=== PATIENT | female | born 1975 | race Caucasian/White ===

== ENCOUNTER 2017-06-14 09:21 | Outpatient (CLI) | payer BC ==
--- NOTE | 2017-06-14 12:10 | Ultrasound Report ---
ULTRASOUND RIGHT UPPER QUADRANT: 06/14/2017 CLINICAL INDICATION: Pain. TECHNIQUE: Real-time scanning was performed with sales representative jewelry static images obtained. FINDINGS: The liver measures 14.8 cm. No intrahepatic biliary dilatation is seen. Hepatic echotext ure is normal. There is a 1.9 x 1.9 x 1.9 cm hypoechoic nodule in the dome of the right lobe, with a n echogenic rim. The appearance is suspicious. MRI of the liver with and without contrast is recomm ended for further evaluation. The common bile duct measures 3 mm. The gallbladder is normal. The r ight kidney measures 11.8 cm, and demonstrates no hydronephrosis. Trace right pleural fluid is incid entally noted. IMPRESSION: A 1.9 CM SUSPICIOUS NODULE IN THE RIGHT LOBE OF THE LIVER. MRI OF THE LIVER WITH AND WI THOUT CONTRAST IS RECOMMENDED FOR FURTHER EVALUATION. JOB #: [id number] EXT JOB #:[id number]
== END 2017-06-14 09:22 | disposition home or self-care (01) ==
LOC: DI 09:21
PROVIDERS: ATTEND Naturopath
DX: R16.0 Hepatomegaly, not elsewhere classified (principal)
CPT/HCPCS: 76705

== ENCOUNTER 2017-09-30 09:00 | Outpatient (CLI) | payer OTHER ==
--- NOTE | 2017-09-30 11:04 | Ultrasound Report ---
RIGHT UPPER QUADRANT ULTRASOUND: 09/30/2017 CLINICAL INDICATION: Followup liver lesion. COMPARISON: 06/14/2017. TECHNIQUE: Real-time scanning was performed with education courses sales representative static images obtained. FINDINGS: The liver measures 15.1 cm. Hepatic echogenicity is increased, compatible with fatty infiltration. The nodule in the right lobe measures 2.0 x 1.9 x 1.5 cm, stable. Again, further characterization with liver MRI would be helpful. The common bile duct is not dilated. The gallbladder is normal. The right kidney measures 11.9 cm, and demonstrates no hydronephrosis. No free fluid is present. IMPRESSION: STABLE NODULE IN THE RIGHT LOBE OF THE LIVER. TD: 09/30/2017 11:03
== END 2017-09-30 09:01 | disposition home or self-care (01) ==
LOC: DI 09:00
PROVIDERS: ATTEND Registered Nurse
DX: K76.9 Liver disease, unspecified (principal)
CPT/HCPCS: 76705

== ENCOUNTER 2018-05-21 08:18 | Outpatient (CLI) | payer OTHER ==
--- NOTE | 2018-05-21 12:25 | Ultrasound Report ---
Reason: F/U THYROID NODULES, F/U R LIVER NODULE Procedure Date: 05/21/2018 Accession Number: [id number] / [id number] Procedure: US - Abdomen Limited CPT Code: FULL RESULT: EXAM: ABDOMEN ULTRASOUND LIMITED, RUQ EXAM DATE: 05/21/2018 09:43 AM. CLINICAL HISTORY: F/U THYROID NODULES, F/U R LIVER NODULE. COMPARISON: Abdomen ultrasound 09/30/2017. TECHNIQUE: Real-time scanning was performed with static images obtained. FINDINGS: Liver: The liver is moderately and diffusely echogenic. 14.9 cm. Main portal vein flow: Hepatopetal. There is a hypoechoic lesion in the right lobe of the liver with an echogenic rind. Overall it measures up to 1.9 cm. No change. However, the hypoechoic area has increased from 1.0 cm to 1.3 cm. Gallbladder: No stones, wall thickening, or sonographic Talley's sign. Biliary System: CBD measures 5 mm. No intrahepatic or extrahepatic ductal dilatation. The right kidney is grossly remarkable. IMPRESSION: Right hepatic lesion has changed somewhat in character with the central echogenic area increased from 1.0 to 1.3 cm. This may be better evaluated with hepatic CT or MRI. [facility] ADDENDUM: 05/26/18 14:32 There was an administrative mistake in the impression. This does not change the management. However please change the impression to the following: IMPRESSION: Right hepatic lesion has changed somewhat in character with the central hypoechoic area increased from 1.0 to 1.3 cm. This may be better evaluated with hepatic CT or MRI.
--- NOTE | 2018-05-21 12:36 | Ultrasound Report ---
Reason: F/U THYROID NODULES, F/U R LIVER NODULE Procedure Date: 05/21/2018 Accession Number: [id number] / [id number] Procedure: US - Head or Neck Soft Tissue CPT Code: FULL RESULT: EXAM: THYROID ULTRASOUND EXAM DATE: 05/21/2018 09:42 AM. CLINICAL HISTORY: F/U THYROID NODULES, F/U R LIVER NODULE. COMPARISON: None. TECHNIQUE: Real time sonographic imaging of the thyroid was performed by the licensed therapist. Multiple access services representative static images were saved for review. FINDINGS: THYROID GLAND: Right Lobe: 5.4 x 2.5 x 2.3 cm, volume 16 cc. Normal background echotexture. Right Lobe Nodules: Middle lobe solid isoechoic. Smooth margins no calcifications. Internal color Doppler flow. 3.0 x 2.5 x 2.3 cm. Upper pole solid hypoechoic. Color than wide smooth margins no calcifications. 1.0 x 1.1 x 0.8 cm. Mid lobe at the junction of the isthmus solid isoechoic smooth margins wider than tall with no calcifications. 1.0 x 0.7 x 0.7 cm. Left Lobe: 4.9 x 1.7 x 1.6 cm, volume 7 cc. Normal background echotexture. Left Lobe Nodules: None. Isthmus: 0.4 cm AP. Isthmic Nodules: None. LYMPH NODES: No adenopathy demonstrated in the central or lateral compartment. IMPRESSION: 1. Nodule #1 3.0 cm TI-RADS 3 mildly suspicious. FNA of greater than or equal to 2.5 cm. 2. Nodule #2 1.1 cm. TI-RADS 5. Suspicious. FNA of greater than or equal to 1.0 cm. 3. Nodule #3 1.0 cm. TI-RADS 3. Mildly suspicious. FNA if greater than or equal to 2.5 cm. Follow if greater than 1.5 cm. Management recommendations are based on 2015 [place] [employer] Management Guidelines for Adult Patients with Thyroid Nodules and Differentiated Thyroid Cancer. RADIA
== END 2018-05-21 08:19 | disposition home or self-care (01) ==
LOC: DI 08:18
PROVIDERS: ATTEND Registered Nurse
DX: E04.1 Nontoxic single thyroid nodule (principal); K76.9 Liver disease, unspecified
CPT/HCPCS: 76536; 76705

== ENCOUNTER 2018-06-10 11:34 | Outpatient (CLI) | payer OTHER ==
[2018-06-10 13:38] LABS: FERRITIN 21.7 ng/mL (11.0-306.8); PROLACTIN 6.77 ng/mL
[2018-06-10 13:59] LABS: FOLLICLE STIMULATING HORMONE 16.18 mIU/mL
[2018-06-10 14:00] LABS: LUTEINIZING HORMONE 20.15 mIU/mL
[2018-06-10 15:48] LABS: CORTISOL 7.3 ug/dL
[2018-06-11 07:16] LABS: PROGESTERONE 1.2 ng/mL
== END 2018-06-10 11:35 | disposition home or self-care (01) ==
LOC: LAB 11:34
PROVIDERS: ATTEND Naturopath
DX: Z00.00 Encounter for general adult medical examination without abnormal findings (principal); Z13.29 Encounter for screening for other suspected endocrine disorder; E55.9 Vitamin D deficiency, unspecified
CPT/HCPCS: 36415; 81599; 82306; 82533; 82607; 82627; 82670; 82677; 82679; 82728; 83001; 83002; 84140; 84144; 84146; 84402; 84403

== ENCOUNTER 2019-08-06 11:11 | Outpatient (CLI) | payer BC ==
[2019-08-06 11:54] LABS: ALBUMIN 4.6 g/dL (3.2-5.5); ALBUMIN/GLOBULIN RATIO 1.5 (1.0-2.2); BILIRUBIN,TOTAL 1.1 mg/dL (0.2-1.0); CALCIUM 9.3 mg/dL (8.5-10.3); CREATININE 0.7 mg/dL (0.4-1.0); TOTAL PROTEIN 7.6 g/dL (6.7-8.2)
== END 2019-08-06 11:12 | disposition home or self-care (01) ==
LOC: LAB 11:11
PROVIDERS: ATTEND Internal Medicine Gastroenterology
DX: R10.13 Epigastric pain (principal); R93.89 Abnormal findings on diagnostic imaging of other specified body structures; R14.0 Abdominal distension (gaseous)
CPT/HCPCS: 36415; 80053

== ENCOUNTER 2019-08-27 10:03 | Outpatient (CLI) | payer BC ==
[2019-08-27] MEDS ORDERED: BARIUM SULFATE 148 GM POWDER PO ONE (14:16)
[2019-08-27] MEDS ORDERED: BARIUM SULFATE 700 MG TABLET PO ONE (14:16)
[2019-08-27] MEDS ORDERED: SIMETHICONE/SOD BICARB/CIT AC 1 EACH PACKET PO ONE (14:16)
[2019-08-27] MEDS ORDERED: BARIUM SULFATE 135 ML BOTTLE PO ONE (14:16)
--- NOTE | 2019-08-27 14:16 | XRAY Report ---
Reason: ABD PAIN, EPIGASTRIC, US SCAN ABN LIVER LESION Procedure Date: 08/27/2019 Accession Number: [id number] / [id number] Procedure: FL - UGI W/Air CPT Code: Final Report FULL RESULT: EXAM: UPPER GI SERIES EXAM DATE: 08/27/2019 10:36 AM. CLINICAL HISTORY: Abdominal pain, epigastric, ultrasound scan abnormal liver lesion. COMPARISONS: None. TECHNIQUE: Routine double contrast upper gastrointestinal technique. Fluoroscopy Time: 2 minutes 20 seconds. Number of fluoroscopy images: 37. FINDINGS: Swallowing Mechanism: Normal oral phase and swallowing reflex. No episodes of tracheal penetration or aspiration evident. Esophageal Motility: Normal peristaltic stripping wave. Esophageal Mucosa: Normal. No ulcerations or masses. Gastroesophageal Junction: There is no hernia. Spontaneous reflux is noted. Stomach: Normal gastric mucosal pattern. No ulcers identified. Duodenum: Normal duodenal mucosal pattern. No ulcers or diverticula identified. Other: None. IMPRESSION: Spontaneous reflux. RADIA
== END 2019-08-27 10:04 | disposition home or self-care (01) ==
LOC: DI 10:03
PROVIDERS: ATTEND Internal Medicine Gastroenterology
DX: K21.9 Gastro-esophageal reflux disease without esophagitis (principal)
CPT/HCPCS: 74246; A9270

== ENCOUNTER 2023-06-19 10:40 | Outpatient (CLI) | payer BC ==
--- NOTE | 2023-06-21 09:33 | Mammography Report ---
BILATERAL DIGITAL DIAGNOSTIC MAMMOGRAM 3D/2D WITH MEDIOLATERAL SPOT COMPRESSION: 06/19/2023 CLINICAL: Patient returns today to evaluate asymmetries in bilateral breasts. Comparison is made to exam dated: 10/22/2022 mammogram - [facility]. Both breasts are heterogeneously dense, which may obscure small masses (category c / 51-75% glandular tissue). There is a possible asymmetry in the right breast middle depth medial region seen on the craniocaudal view only. This is less prominent. There is a possible focal asymmetry in the left breast at 11 o'clock posterior depth. This is less p rominent. There also is a benign asymmetry in the left breast posterior depth superior region seen on the medio lateral oblique view only. This is not seen in additional views. No other significant masses or calcifications are seen in either breast. IMPRESSION: INCOMPLETE: NEEDS ADDITIONAL IMAGING EVALUATION The possible asymmetry in the right breast middle depth medial region seen on the craniocaudal view o nly is indeterminate. The possible focal asymmetry in the left breast at 11 o'clock posterior depth is indeterminate. A targeted ultrasound is recommended and will immediately follow. Based on the Tyrer Cuzick model (a risk assessment model) the patients lifetime risk is 13.6% and he r 10 year risk is 2.9%. According to the ACR, ACS, and NCCN guidelines, an annual breast MRI exam bibi ng with mammogram is recommended if the patients lifetime risk is 20% or greater. This exam was interpreted at Station ID: [id number]. NOTE: For mammograms, a report in lay terms will be sent to the patient. Approximately 15% of breast malignancies will not be visualized mammographically. In the management of a palpable breast mass, a negative mammogram must not discourage biopsy of a clinically suspicious lesion. Electronically Signed By: Joel Melendrez M.D. slc/:06/19/2023 12:15:18 ACR BI-RADS Category 0: Incomplete 3340F PARENCHYMAL PATTERN: (D) - The breast(s) demonstrate(s) heterogeneously dense fibroglandular parenchy ma. BI-RADS CATEGORY: (0) - 0 Ultrasound [id number] Immediate follow-up LATERALITY: (B)
--- NOTE | 2023-06-21 09:34 | Ultrasound Report ---
LIMITED ULTRASOUND OF RIGHT BREAST: 06/19/2023 CLINICAL: Patient returns today to evaluate a focal asymmetry in the right breast. Comparison is made to exams dated: 06/19/2023 mammogram - [facility] and 10/22/2022 mammogram - [facility]. Real-time ultrasound of the right breast 2-3 o'clock region was performed. Higuera scale images of the real-time examination were reviewed. No significant abnormalities were seen sonographically in the right breast. IMPRESSION: NEGATIVE There is no sonographic evidence of malignancy. A 1 year screening mammogram is recommended. Exam findings were conveyed to the patient. This exam was interpreted at Station ID: [id number]. Electronically Signed By: Joel Melendrez M.D. slc/:06/19/2023 17:55:55 Ultrasound BI-RADS: 1 Negative BI-RADS CATEGORY: (1) - 1 Mammogram [id number] 1 year screening LATERALITY: (B)
--- NOTE | 2023-06-21 09:34 | Ultrasound Report ---
LIMITED ULTRASOUND OF LEFT BREAST: 06/19/2023 CLINICAL: Patient returns today to evaluate a focal asymmetry in the left breast. Comparison is made to exams dated: 06/19/2023 mammogram - [facility] and 10/22/2022 mammogram - [facility]. Color flow and real-time ultrasound of the left breast 11 o'clock region were performed. Higuera scale images of the real-time examination were reviewed. No mass or cyst. Benign fibroglandular tissue. IMPRESSION: NEGATIVE There is no sonographic evidence of malignancy. A 1 year screening mammogram is recommended. Exam findings were conveyed to the patient. This exam was interpreted at Station ID: [id number]. Electronically Signed By: Joel Melendrez M.D. slc/:06/19/2023 17:58:06 Ultrasound BI-RADS: 1 Negative BI-RADS CATEGORY: (1) - 1 Mammogram [id number] 1 year screening LATERALITY: (B)
== END 2023-06-19 10:41 | disposition home or self-care (01) ==
LOC: DI 10:40
PROVIDERS: ATTEND Registered Nurse
DX: R92.8 Other abnormal and inconclusive findings on diagnostic imaging of breast (principal); R92.333 Mammographic heterogeneous density, bilateral breasts